=== PATIENT | female | born 1990 | race African-American/Black ===

== ENCOUNTER 2017-05-22 13:27 | Emergency (ER) | payer MEDICAID ==
[~2017-05-22] VITALS: Ht 167.6 cm; Wt 56.4 kg
[2017-05-22] MEDS ORDERED: KETOROLAC TROMETH 60MG/2ML VIAL IM ONE (17:15)
[2017-05-22 18:04] LABS: Urine Bilirubin Negative (Negative); Urine Blood Negative /uL (Negative); Urine Color Yellow (Yellow); Urine Glucose Normal (Normal); Urine Ketone Negative (Negative); Urine Mucus FEW (None Seen); Urine Nitrite Negative (Negative); Urine RBC 1 /hpf (0 - 4); Urine Squamous Epithelial Cell FEW /hpf (<5)
[2017-05-22 18:26] VITALS: BP 97/60
== END 2017-05-22 19:14 | disposition home or self-care (01) ==
LOC: ER 13:29
DX: M54.9 Dorsalgia, unspecified (principal); M79.1 Myalgia; R11.2 Nausea with vomiting, unspecified; J45.909 Unspecified asthma, uncomplicated
CPT/HCPCS: 81001; 81025; 96372; 99284; J1885

== ENCOUNTER 2017-09-23 10:43 | Emergency (ER) | payer MEDICAID ==
[~2017-09-23] VITALS: Ht 172.7 cm; Wt 59.0 kg
[2017-09-23 11:16] LABS: Hematocrit 42.1 % (36.0-46.0); Hemoglobin 14.3 g/dL (12.2-16.2); Mean Corpuscular Hemoglobin 30.2 pg (28.0-32.0); Mean Corpuscular Hgb Conc. 33.9 g/dL (32.0-36.0); Platelet Count (auto) 247 10^3/uL (140-450); Red Blood Cells 4.73 10^6/uL (4.0-5.20); Red Cell Distribution Width 13.1 % (11.8-14.3); White Blood Cell 3.9 10^3/uL (4.4-10.8)
[2017-09-23 11:27] LABS: Basophils % (manual) 0 (0.0-2.0); Blast Cells 0; Eosinophils % (manual) 0 (0-7); Metamyelocytes % 0; Myelocytes % 0; Promyelocytes % 0; Reactive Lymphocytes 0
[2017-09-23 11:39] LABS: Bilirubin, Total 0.5 mg/dL (0.2-1.0); Calcium 9.1 mg/dL (8.5-10.1); Potassium 3.4 mmol/L (3.5-5.1); Total Protein 8.7 g/dL (6.4-8.2)
[2017-09-23 11:48] LABS: Band Neutrophils % (manual) 1; Lymphocytes % (manual) 67 (10.0-50.0); Monocytes % (manual) 11 (0-12)
[2017-09-23] MEDS ORDERED: IPRATROPIUM BROM 0.5 MG/2.5ML INH SOL NEB ONE (19:15)
[2017-09-23] MEDS ORDERED: methylPREDNISolone SOD SUCC 125 MG/2 ML VL IV ONE (19:15)
[2017-09-23] MEDS ORDERED: ALBUTEROL SULF 2.5 MG/0.5ML(0.5%) NEB SOLN NEB ONE (19:15)
[2017-09-23] MEDS ORDERED: cefTRIAXone W LIDOCAINE 1 GM IM IM ONE (19:15)
[2017-09-23 21:55] VITALS: BP 123/73
[2017-09-23] MEDS ORDERED: LIDOCAINE 1% HCL (LOCAL ANESTH.) INJ 20ML MDV ONE (21:55)
[2017-09-23] MEDS ORDERED: cefTRIAXone SOD 1,000 MG VL ONE (21:55)
[2017-09-23] MEDS ORDERED: methylPREDNISolone SOD SUCC 125 MG/2 ML VL IM ONE (22:15)
== END 2017-09-23 22:27 | disposition home or self-care (01) ==
LOC: ER 10:43 → EDBD 10:43 → ER 22:27
DX: J45.909 Unspecified asthma, uncomplicated (principal)
CPT/HCPCS: 36415; 71045; 80053; 82150; 83690; 84702; 85007; 85027; 94640; 96372; 99285; J0696; J2001; J2930

== ENCOUNTER 2019-10-07 00:45 | Emergency (ER) | payer MEDICAID ==
[~2019-10-07] VITALS: Ht 170.2 cm; Wt 65.8 kg
[2019-10-07 02:39] VITALS: BP 122/80
[2019-10-07] MEDS ORDERED: ALBUTEROL SULF 2.5 MG/0.5ML(0.5%) NEB SOLN NEB ONE (04:00)
[2019-10-07] MEDS ORDERED: IPRATROPIUM BROM 0.5 MG/2.5ML INH SOL NEB ONE (04:00)
== END 2019-10-07 04:37 | disposition home or self-care (01) ==
LOC: ER 00:49
DX: J06.9 Acute upper respiratory infection, unspecified (principal); J45.909 Unspecified asthma, uncomplicated
CPT/HCPCS: 87070; 87804; 87880; 94640; 99283; J7611; J7644

== ENCOUNTER 2019-10-16 03:09 | Emergency (ER) | payer MEDICAID ==
[~2019-10-16] VITALS: Ht 170.2 cm; Wt 63.5 kg
[2019-10-16] MEDS ORDERED: IPRATROPIUM BROM 0.5 MG/2.5ML INH SOL NEB ONE ×2 (03:45→05:45)
[2019-10-16] MEDS ORDERED: ALBUTEROL SULF 2.5 MG/0.5ML(0.5%) NEB SOLN NEB ONE ×2 (03:45→05:45)
[2019-10-16 07:30] VITALS: BP 120/69
[2019-10-16] MEDS ORDERED: methylPREDNISolone SOD SUCC 125 MG/2 ML VL IM ONE (07:30)
== END 2019-10-16 07:58 | disposition home or self-care (01) ==
LOC: ER 03:09
DX: J45.901 Unspecified asthma with (acute) exacerbation (principal)
CPT/HCPCS: 71046; 94640; 96372; 99284; J2930; J7611; J7644

== ENCOUNTER 2019-10-18 14:40 | Emergency (ER) | payer MEDICAID ==
[~2019-10-18] VITALS: Ht 170.2 cm; Wt 63.5 kg
[2019-10-18 17:30] VITALS: BP 116/64
[2019-10-18] MEDS ORDERED: SODIUM CHLORIDE 0.9% 1,000 ML IV ONE (17:45)
[2019-10-18] MEDS ORDERED: ACETAMINOPHEN 500 MG TAB PO ONE (17:45)
[2019-10-18] MEDS ORDERED: PROMETHAZINE W/CODEINE 5 ML ORAL SYRUP PO ONE (17:45)
[2019-10-18 18:07] LABS: Hematocrit 42.4 % (36.0-46.0); Hemoglobin 14.5 g/dL (12.2-16.2); Mean Corpuscular Hemoglobin 30.7 pg (28.0-32.0); Mean Corpuscular Hgb Conc. 34.1 g/dL (32.0-36.0); Mean Corpuscular Volume 90.1 fL (80.0-100.0); Platelet Count (auto) 182 10^3/uL (140-450); Red Cell Distribution Width 13.8 % (11.8-14.3); White Blood Cell 6.9 10^3/uL (4.4-10.8)
[2019-10-18 18:15] LABS: Band Neutrophils % (manual) 0; Basophils % (manual) 0 (0.0-2.0); Blast Cells 0; Eosinophils % (manual) 0 (0-7); Metamyelocytes % 0; Myelocytes % 0; Promyelocytes % 0; Reactive Lymphocytes 0
[2019-10-18 18:29] LABS: BUN/Creatinine Ratio 9.4; Calcium 8.8 mg/dL (8.5-10.1); Potassium 3.4 mmol/L (3.5-5.1)
[2019-10-18 18:31] LABS: Bilirubin, Total 0.4 mg/dL (0.2-1.0); Total Protein 8.2 g/dL (6.4-8.2)
[2019-10-18] MEDS ORDERED: cefTRIAXone 1GM/50ML D5W 50 ML IV ONE (19:00)
[2019-10-18] MEDS ORDERED: DexAMETHasone SOD PHOS 10MG/1ML VIAL INJ IV ONE (19:00)
[2019-10-18] MEDS ORDERED: diphenhdrAMINE HCL 50 MG/1 ML VL IV ONE (19:00)
[2019-10-18 19:33] LABS: Urine Bacteria NONE SEEN /hpf (None Seen); Urine Blood Negative /uL (Negative); Urine Specific Gravity 1.013 (1.001-1.035); Urine WBC 2 /hpf (0 - 5)
[2019-10-18 20:31] LABS: Lymphocytes % (manual) 15 (10.0-50.0); Monocytes % (manual) 17 (0-12)
== END 2019-10-18 20:22 | disposition home or self-care (01) ==
LOC: ER 14:40
DX: J06.9 Acute upper respiratory infection, unspecified (principal); R05 Cough
CPT/HCPCS: 36415; 80053; 81001; 81025; 83605; 84702; 85007; 85027; 85379; 96361; 96365; 96375; 99283; J0696; J1100; J1200; J7030